=== PATIENT | female | born 1995 | race Hispanic/Latino ===

== ENCOUNTER 2017-07-04 16:43 | Emergency (ER) | payer BC, SELFPAY ==
[2017-07-04] MEDS ORDERED: MAGNESIUM HYDROXIDE 8% 30 ML ONE (19:21)
[2017-07-04] MEDS ORDERED: LIDOCAINE VISCOUS 2% SOLN 15 ML UDC ONE (19:21)
--- NOTE | 2017-07-04 19:31 | ER ---
Nurse's Notes [facility] Name: Zan Weaver Age: 22 yrs Sex: Female : 1995 Arrival Date: 07/04/2017 Time: 16:47 Bed 12 Private MD: Diagnosis: Acute tonsillitis, unspecified Presentation: 07/04 16:48 Presenting complaint: Patient states: i started having sore throat 4 days ago, and hj fever started 2 days ago; took mucinex and nyquil but not helping;. Transition of care: patient was not received from another setting of care. Onset of symptoms was July 04, 2017. Care prior to arrival: None. 16:48 Method Of Arrival: Ambulatory hj 16:48 Acuity: BRUNO 4 hj Triage Assessment: 16:49 General: Appears in no apparent distress. uncomfortable, Behavior is calm, cooperative, hj appropriate for age. Pain: Complains of pain in throat. EENT: Reports pain when swallowing. 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 - Social history:: Smoking status: unknown. Screenin:25 Abuse screen: Denies threats or abuse. Denies injuries from another. Nutritional aj1 screening: No deficits noted. Tuberculosis screening: No symptoms or risk factors identified. Fall Risk None identified. Assessment: 16:49 Respiratory: Airway is patent Respiratory effort is even, unlabored, Respiratory hj pattern is regular, symmetrical, Breath sounds are clear. EENT: Throat. 17:20 Neuro: No deficits noted. Cardiovascular: Denies chest pain, diaphoresis, fatigue, sg lightheadedness, nausea, palpitations, shortness of breath, syncope, vomiting, Chest pain is denied. Respiratory: Airway is patent Respiratory effort is even, unlabored, Respiratory pattern is regular, symmetrical. GI: No signs and/or symptoms were reported involving the gastrointestinal system. : No signs and/or symptoms were reported regarding the genitourinary system. EENT: Oral mucosa is moist. Throat is reddened has patchy exudate has enlarged tonsils bilaterally. EENT: Reports pain when swallowing right ear pain. 19:25 General: Appears in no apparent distress. uncomfortable, Behavior is calm, cooperative, aj1 appropriate for age. Pain: Complains of pain in left aspect of posterior pharynx and right aspect of posterior pharynx Pain does not radiate. Pain currently is 8 out of 10 on a pain scale. Quality of pain is described as burning, sharp. Neuro: Level of Consciousness is awake, alert, obeys commands, Oriented to person, place, time, situation, Speech is normal, Facial symmetry appears normal. Cardiovascular: Patient's skin is warm and dry. Respiratory: Airway is patent Respiratory effort is even, unlabored, Respiratory pattern is regular, symmetrical, Breath sounds are clear bilaterally. GI: No signs and/or symptoms were reported involving the gastrointestinal system. : No signs and/or symptoms were reported regarding the genitourinary system. EENT: Throat is reddened has patchy exudate has enlarged tonsils bilaterally. Derm: No signs and/or symptoms reported regarding the dermatologic system. Skin is pink, warm \T\ dry. normal. Musculoskeletal: No signs and/or symptoms reported regarding the musculoskeletal system. Circulation, motion, and sensation intact. 20:03 Reassessment: Patient appears in no apparent distress at this time. No changes from aj1 previously documented assessment. Patient and/or family updated on plan of care and expected duration. Pain level reassessed. Patient is alert, oriented x 3, equal unlabored respirations, skin warm/dry/pink. Vital Signs: 16:50 BP 112 / 60; Pulse 87; Resp 18; Temp 97.5(TE); Pulse Ox 99% on R/A; Weight 140.61 kg hj (R); Pain 10/10; 19:25 BP 136 / 92; Pulse 77; Resp 18; Pulse Ox 98% ; aj1 20:03 BP 136 / 88; Pulse 75; Resp 18; Pulse Ox 99% ; aj1 ED Course: 16:47 Patient arrived in ED. mr 16:49 Triage completed. hj 16:52 Arm band placed on left wrist. hj 17:13 Bong White PA is PHCP. cp 17:13 Bong Kelsey MD is Attending Physician. cp 17:25 Jerel Araujo, LÓPEZ is Primary Nurse. sg 19:01 Initial lab(s) drawn, by me, sent to lab. Inserted saline lock: 22 gauge in left iw antecubital area, using aseptic technique. Blood collected. 19:04 Flu and/or RSV swab sent to lab. 19:17 Sandra Parks, RN is Primary Nurse. aj1 19:17 Report received from Jerel Araujo RN. aj1 19:25 Patient has correct armband on for positive identification. Call light in reach. aj1 19:25 No provider procedures requiring assistance completed. aj1 20:04 IV discontinued, intact, bleeding controlled, No redness/swelling at site. Pressure aj1 dressing applied. Administered Medications: 19:24 Drug: GI Cocktail without - (Maalox Suspension 30 ml, Lidocaine Liquid 2 % 15 aj1 ml) Route: PO; 20:04 Follow up: Response: No adverse reaction aj1 Outcome: 19:30 Discharge ordered by . cp 20:04 Discharged to home ambulatory. aj1 20:04 Condition: good 20:04 Discharge instructions given to patient, Instructed on discharge instructions, follow up and referral plans. medication usage, Demonstrated understanding of instructions, follow-up care, medications, Prescriptions given X 2. 20:05 Patient left the ED. aj1 Signatures: Sandra Parks, RN LÓPEZ ajJerel Norman, RN LÓPEZ Antionette Miller mr Loan Calle RN RN Alli Martinez RN RN hj Page, Corey, PA PA cp Corrections: (The following items were deleted from the chart) 16:53 16:50 Pulse 87bpm; Resp 18bpm; Pulse Ox 99% RA; Temp 97.5F Temporal; 140.61 kg hj Reported; Pain 10/10; hj
--- NOTE | 2017-07-04 19:31 | EDPHYS ---
Physician Documentation [facility] Name: Zan Weaver Age: 22 yrs Sex: Female : 1995 Arrival Date: 07/04/2017 Time: 16:47 Bed 12 Private MD: ED Physician Bong Kelsey HPI: 07/04 17:45 This 22 yrs old Female presents to ER via Ambulatory with complaints of Sore cp Throat. 17:45 The patient presents with sore throat. Onset: The symptoms/episode began/occurred 4 cp day(s) ago. 17:45 Severity of symptoms: in the emergency department the symptoms are unchanged, despite cp home interventions. 17:45 Associated signs and symptoms: Pertinent positives: fever, Pertinent negatives cough, cp flu-like symptoms. 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 - Social history:: Smoking status: unknown. ROS: 17:50 Constitutional: Negative for body aches, fever, poor PO intake. cp 17:50 Eyes: Negative for injury, pain, redness, and discharge. cp 17:50 ENT: Positive for ear pain, sore throat, Negative for drainage from ear(s), difficulty swallowing, difficulty handling secretions. 17:50 Neck: Negative for pain with movement, pain at rest, stiffness. 17:50 Respiratory: Negative for cough, shortness of breath, wheezing. 17:50 Abdomen/GI: Negative for abdominal pain, vomiting, diarrhea, constipation, anorexia. 17:50 Skin: Negative for cellulitis, rash. 17:50 Neuro: Negative for altered mental status, dizziness, headache, weakness. 17:50 All other systems are negative. Exam: 17:55 Constitutional: The patient appears in no acute distress, alert, awake, non-toxic, well cp developed, well nourished, obese. 17:55 Head/Face: Normocephalic, atraumatic. cp 17:55 Eyes: Periorbital structures: appear normal, Conjunctiva: normal, no exudate, no injection, Sclera: no appreciated abnormality, Lids and lashes: appear normal, bilaterally. 17:55 ENT: External ear(s): are unremarkable, Ear canal(s): are normal, clear, TM's: bulging, is not appreciated, bilaterally, dullness, bilaterally, erythema, is not appreciated, bilaterally, Nose: is normal, Mouth: Lips: moist, Oral mucosa: moist, Posterior pharynx: Airway: no evidence of obstruction, patent, Tonsils: with erythema, with exudate, mild enlargement, Uvula: midline, swelling, is not appreciated, erythema, that is mild, Voice: is normal. 17:55 Neck: ROM/movement: is normal, is supple, no range of motions limitations, no meningismus, no nuchal rigidity. 17:55 Chest/axilla: Inspection: normal, Palpation: is normal, no crepitus, no tenderness. 17:55 Cardiovascular: Rate: normal, Rhythm: regular. 17:55 Respiratory: the patient does not display signs of respiratory distress, Respirations: normal, no use of accessory muscles, no retractions, no splinting, no tachypnea, labored breathing, is not present, Breath sounds: are clear throughout, no decreased breath sounds, no stridor, no wheezing. 17:55 Abdomen/GI: Exam negative for discomfort, distension, guarding, Inspection: obese 17:55 Skin: cellulitis, is not appreciated, no rash present. Vital Signs: 16:50 BP 112 / 60; Pulse 87; Resp 18; Temp 97.5(TE); Pulse Ox 99% on R/A; Weight 140.61 kg hj (R); Pain 10/10; 19:25 BP 136 / 92; Pulse 77; Resp 18; Pulse Ox 98% ; aj1 20:03 BP 136 / 88; Pulse 75; Resp 18; Pulse Ox 99% ; aj1 MDM: 17:13 Patient medically screened. cp 19:30 Data reviewed: vital signs, nurses notes, lab test result(s). cp 19:30 Differential diagnosis: epiglottitis, annette-smith virus, group A strep tonsillitis, cp xiao's angina, lymphoma, mononucleosis, peritonsillar abscess retropharyngeal abcess. Counseling: I had a detailed discussion with the patient and/or guardian regarding: the historical points, exam findings, and any diagnostic results supporting the discharge/admit diagnosis, lab results, to return to the emergency department if symptoms worsen or persist or if there are any questions or concerns that arise at home. Response to treatment: the patient's symptoms have mildly improved after treatment, and as a result, I will discharge patient. 07/04 16:53 Order name: Strep; Complete Time: 19:29 hj 07/04 19:29 Interpretation: Reviewed. cp 07/04 17:46 Order name: [place] Screen Profile cp 07/04 17:46 Order name: Influenza Screen (a \T\ B); Complete Time: 19:29 cp 07/04 19:29 Interpretation: Reviewed. cp 07/04 17:46 Order name: [place] Screen; Complete Time: 19:29 EDMS 07/04 19:26 Order name: Throat Culture EDMS Administered Medications: 19:24 Drug: GI Cocktail without - (Maalox Suspension 30 ml, Lidocaine Liquid 2 % 15 aj1 ml) Route: PO; 20:04 Follow up: Response: No adverse reaction aj1 Disposition: 07/05 11:39 Co-signature as Attending Physician, Bong Kelsey MD I agree with the assessment and meme plan of care. Disposition: 07/04/17 19:30 Discharged to Home. Impression: Acute tonsillitis, unspecified. - Condition is Stable. - Discharge Instructions: Tonsillitis. - Prescriptions for Augmentin 875- 125 mg Oral Tablet - take 1 tablet by ORAL route every 12 hours for 10 days; 20 tablet. Prednisone 20 mg Oral Tablet - take 3 tablet by ORAL route once daily for 5 days; 15 tablet. - Medication Reconciliation Form, Thank You Letter, Antibiotic Education, Prescription Opioid Use form. - Follow up: Private Physician; When: 1 - 2 days; Reason: Recheck today's complaints. - Problem is new. - Symptoms are unchanged. Signatures: Dispatcher [employer] EDSandra Villasenor RN RN aj1 Bong Kelsey MD MD cha Joaquin, Henry RN Bong Torres PA PA cp
[2017-07-04 20:24] VITALS: TEMP 97.5
[2017-07-04 20:26] VITALS: BP 136/88; O2SAT 99
== END 2017-07-04 20:05 | disposition home or self-care (01) ==
LOC: ER 16:43
DX: J03.90 Acute tonsillitis, unspecified (principal)
CPT/HCPCS: 36415; 86308; 87070; 87081; 87804; 99284

== ENCOUNTER 2017-09-17 23:13 | Emergency (ER) | payer SELFPAY ==
--- OUTSIDE RECORDS SUMMARY | 2017-09-17 23:15 | XMS REPORT ---
:1995 [facility] Address [address] [place] [address] [place] [id number] Care Team Providers Name Role Phone UNKNOWN, REFFERING Primary Care Provider Unavailable Problems This patient has no known problems. Allergies, Adverse Reactions, Alerts This patient has no known allergies or adverse reactions. Medications This patient has no known medications. Encounters Start End Encounter Admission Attending Care Care Encounter Date/Time Date/Time Type Type Clinicians Facility Department ID 2016-05-08 2016-05-08 Emergency E [facility] MED [id number] 22:33:00 22:33:00
[2017-09-18 00:51] LABS: Absolute Lymphocytes (CBC) 3.1 K/uL (0.7-4.9); Absolute Monocytes 0.8 K/uL (0.1-1.3); Absolute Neutrophil 5.4 K/uL (1.8-8.0); Basophils % 0.7 % (0-1.3); Eosinophils % 2.9 % (0-4.4); Hematocrit 37.3 % (36.0-45.0); Lymphocytes % 32.4 % (15.3-44.8); MCH 27.4 pg (27.0-35.0); MCV 83.5 fL (80-100); MPV 8.4 fL (7.6-11.3); Monocytes % 8.1 % (3.3-12.3); Protime INR 1.18; RBC Red Blood Cell Count 4.46 M/uL (3.86-4.86)
[2017-09-18 01:17] LABS: Urine Blood 3+ (NEG); Urine Glucose NEGATIVE (NEG); Urine Protein 2+ (NEG); Urine Specific Gravity 1.025 (1.005-1.030)
[2017-09-18 01:40] LABS: BUN Blood Urea Nitrogen 18 mg/dL (7-18); Bicarbonate 29 mmol/L (21-32); Glucose Level 92 mg/dL (74-106); HCG, Quantitative < 1 mIU/mL (1-3); Potassium 3.7 mmol/L (3.5-5.1); Sodium Level 141 mmol/L (136-145)
--- NOTE | 2017-09-18 02:17 | ER ---
Nurse's Notes [facility] Name: Zan Weaver Age: 22 yrs Sex: Female : 1995 Arrival Date: 09/17/2017 Time: 23:13 Bed 18 Private MD: Diagnosis: Abnormal uterine and vaginal bleeding, unspecified Presentation: 09/17 23:21 Presenting complaint: Patient states: that she has been on her period on and off x 3 fc months. Worse the past 2 weeks. The last 2 days the clots have been getting larger and she has been having to pull them out herself. Now has a foul odor. Has not seen a senior solutions consultant for this problem. Transition of care: patient was not received from another setting of care. Onset of symptoms was May 2017. Risk Assessment: Do you want to hurt yourself or someone else? Patient reports no desire to harm self or others. Initial Sepsis Screen: Does the patient meet any 2 criteria? No. Patient's initial sepsis screen is negative. Does the patient have a suspected source of infection? No. Patient's initial sepsis screen is negative. Care prior to arrival: None. 23:21 Method Of Arrival: Ambulatory 23:21 Acuity: BRUNO 3 fc Triage Assessment: 23:24 General: Appears comfortable, obese, well groomed, Behavior is calm, cooperative, fc appropriate for age. Pain: Denies pain. EENT: No deficits noted. Neuro: Level of Consciousness is awake, alert, obeys commands, Oriented to person, place, time, situation. Cardiovascular: No deficits noted. Respiratory: No deficits noted. GI: No deficits noted. : Reports vaginal bleeding that is with clots, heavy flow dark red blood with foul odor. Derm: Skin is pink, warm \T\ dry. Musculoskeletal: Circulation, motion, and sensation intact. Capillary refill < 3 seconds, Range of motion: intact in all extremities. 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 - Social history:: Smoking status: Patient/guardian denies using tobacco. - Ebola Screening: : Patient negative for fever greater than or equal to 101.5 degrees Fahrenheit, and additional compatible Ebola Virus Disease symptoms Patient denies exposure to infectious person Patient denies travel to an Ebola-affected area in the 21 days before illness onset. Screenin:49 Abuse screen: Denies threats or abuse. Nutritional screening: No deficits noted. jd3 Tuberculosis screening: No symptoms or risk factors identified. Fall Risk Ambulatory Aid- None/Bed Rest/Nurse Assist (0 pts). Gait- Normal/Bed Rest/Wheelchair (0 pts) Mental Status- Oriented to own ability (0 pts). Total Burden Fall Scale indicates No Risk (0-24 pts). Assessment: 23:46 General: Appears uncomfortable, Behavior is calm, cooperative, appropriate for age. jd3 Pain: Denies pain. Neuro: Level of Consciousness is awake, alert, obeys commands, Oriented to person, place, time, situation, Appropriate for age. Cardiovascular: Heart tones S1 S2 present Capillary refill < 3 seconds Patient's skin is warm and dry. Respiratory: Airway is patent Respiratory effort is even, unlabored, Respiratory pattern is regular, symmetrical, Breath sounds are clear bilaterally. GI: Abdomen is round Bowel sounds present X 4 quads. Abd is soft and non tender X 4 quads. Patient currently denies diarrhea, nausea, vomiting. : Reports vaginal bleeding that is with clots, heavy flow. EENT: No signs and/or symptoms were reported regarding the EENT system. Derm: Skin is intact, Skin is dry, Skin is normal, Skin temperature is warm. Musculoskeletal: Circulation, motion, and sensation intact. Range of motion: intact in all extremities. 09/18 00:49 Reassessment: Patient appears in no apparent distress at this time. Patient and/or jd3 family updated on plan of care and expected duration. Pain level reassessed. Patient is alert, oriented x 3, equal unlabored respirations, skin warm/dry/pink. 01:56 Reassessment: Patient appears in no apparent distress at this time. Patient and/or jd3 family updated on plan of care and expected duration. Pain level reassessed. Patient is alert, oriented x 3, equal unlabored respirations, skin warm/dry/pink. 02:32 Reassessment: Patient appears in no apparent distress at this time. Patient and/or jd3 family updated on plan of care and expected duration. Pain level reassessed. Patient is alert, oriented x 3, equal unlabored respirations, skin warm/dry/pink. pt reported understanding of discharge instructions, even and steady gait upon discharge. Vital Signs: 09/17 23:24 BP 133 / 81; Pulse 64; Resp 20; Temp 97.6(TE); Pulse Ox 99% on R/A; Weight 137.44 kg fc (R); Height 5 ft. 1 in. (154.94 cm) (R); Pain 0/10; 09/18 00:48 BP 136 / 79; Pulse 65; Resp 17 S; Pulse Ox 99% on R/A; Pain 0/10; jd3 01:56 BP 142 / 80; Pulse 66; Resp 17 S; Pulse Ox 99% on R/A; Pain 0/10; jd3 09/17 23:24 Body Mass Index 57.25 (137.44 kg, 154.94 cm) ED Course: 09/17 23:13 Patient arrived in ED. ds1 23:23 Triage completed. fc 23:37 Ruddy Norris, LÓPEZ is Primary Nurse. jd3 23:38 Arm band placed on. jd3 23:49 Patient has correct armband on for positive identification. Bed in low position. Call jd3 light in reach. Side rails up X 1. Adult w/ patient. 23:52 Bong White PA is PHCP. cp 23:52 Tj Schmidt MD is Attending Physician. cp 09/18 00:30 Inserted saline lock: 20 gauge in right antecubital area, using aseptic technique. jd3 Blood collected. 02:15 Erendira Cho MD is Referral Physician. cp 02:31 No provider procedures requiring assistance completed. IV discontinued, intact, jd3 bleeding controlled, No redness/swelling at site. Pressure dressing applied. Administered Medications: No medications were administered Outcome: 02:16 Discharge ordered by . cp 02:31 Discharged to home ambulatory, with family. jd3 02:31 Condition: stable 02:31 Discharge instructions given to patient, family, Instructed on discharge instructions, follow up and referral plans. Demonstrated understanding of instructions, follow-up care. 02:33 Patient left the ED. jd3 Signatures: Nany Anthony RN RN Peri Bolanos ds1 Bong White PA PA cp Davies, Jonathon, RN RN jd3
--- NOTE | 2017-09-18 02:17 | EDPHYS ---
Physician Documentation [facility] Name: Zan Weaver Age: 22 yrs Sex: Female : 1995 Arrival Date: 09/17/2017 Time: 23:13 Bed 18 Private MD: ED Physician Tj Schmidt HPI: 09/18 00:00 This 22 yrs old Female presents to ER via Ambulatory with complaints of cp Vaginal Bleeding. 00:00 The patient presents with vaginal bleeding that is with clots. Onset: The cp symptoms/episode began/occurred 3 month(s) ago, and became worse 2 week(s) ago. Associated signs and symptoms: Pertinent positives: vaginal odor, Pertinent negatives: constipation, diarrhea, dysuria, fever. Severity of symptoms: in the emergency department the symptoms are unchanged, despite home interventions. The patient's method of control includes nothing. 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 - Social history:: Smoking status: Patient/guardian denies using tobacco. - Ebola Screening: : Patient negative for fever greater than or equal to 101.5 degrees Fahrenheit, and additional compatible Ebola Virus Disease symptoms Patient denies exposure to infectious person Patient denies travel to an Ebola-affected area in the 21 days before illness onset. ROS: 09/18 00:05 Constitutional: Negative for chills, fever, poor PO intake. cp 00:05 Eyes: Negative for injury, pain, redness, and discharge. cp 00:05 ENT: Negative for drainage from ear(s), ear pain, sore throat, difficulty swallowing, difficulty handling secretions. 00:05 Cardiovascular: Negative for chest pain, edema, palpitations. 00:05 Respiratory: Negative for cough, shortness of breath, wheezing. 00:05 Abdomen/GI: Negative for abdominal pain, nausea, vomiting, and diarrhea. 00:05 : Positive for vaginal bleeding, Negative for urinary symptoms. 00:05 Neuro: Negative for altered mental status, dizziness, headache, syncope, near syncope, weakness. 00:05 All other systems are negative. Exam: 00:10 Constitutional: The patient appears in no acute distress, alert, awake, non-toxic, well cp developed, well nourished, obese. 00:10 Head/Face: Normocephalic, atraumatic. Eyes: Pupils equal round and reactive to light, cp extra-ocular motions intact. Lids and lashes normal. Conjunctiva and sclera are non-icteric and not injected. Cornea within normal limits. Periorbital areas with no swelling, redness, or edema. ENT: Nares patent. No nasal discharge, no septal abnormalities noted. Tympanic membranes are normal and external auditory canals are clear. Oropharynx with no redness, swelling, or masses, exudates, or evidence of obstruction, uvula midline. Mucous membranes moist. Chest/axilla: Normal chest wall appearance and motion. Nontender with no deformity. No lesions are appreciated. 00:10 Cardiovascular: Rate: normal, Rhythm: regular, Edema: is not appreciated, JVD: is not appreciated. 00:10 Respiratory: the patient does not display signs of respiratory distress, Respirations: normal, no use of accessory muscles, no retractions, no splinting, no tachypnea, labored breathing, is not present, Breath sounds: are clear throughout, no decreased breath sounds, no stridor, no wheezing. 00:10 Abdomen/GI: Inspection: obese Bowel sounds: active, all quadrants, Palpation: abdomen is soft and non-tender, in all quadrants, rebound tenderness, is not appreciated, voluntary guarding, is not appreciated, involuntary guarding, is not appreciated. 00:10 Back: pain, is absent, ROM is normal. 00:10 Skin: cellulitis, is not appreciated, no rash present. 00:10 Neuro: Orientation: to person, place \T\ time. Mentation: lucid, able to follow commands, Cerebellar function: is grossly normal, Motor: moves all fours, strength is normal, Sensation: no obvious gross deficits. 02:00 : Pelvic Exam: The exam is refused by the patient/guardian. The risks and cp consequences are understood by the patient. Vital Signs: 09/17 23:24 BP 133 / 81; Pulse 64; Resp 20; Temp 97.6(TE); Pulse Ox 99% on R/A; Weight 137.44 kg fc (R); Height 5 ft. 1 in. (154.94 cm) (R); Pain 0/10; 09/18 00:48 BP 136 / 79; Pulse 65; Resp 17 S; Pulse Ox 99% on R/A; Pain 0/10; jd3 01:56 BP 142 / 80; Pulse 66; Resp 17 S; Pulse Ox 99% on R/A; Pain 0/10; jd3 09/17 23:24 Body Mass Index 57.25 (137.44 kg, 154.94 cm) fc MDM: 09/17 23:52 Patient medically screened. 09/18 00:00 Differential diagnosis: dysmenorrhea, ectopic , endometriosis, menorrhea, cp molar preganancy, pelvic inflammatory disease, uterine fibroids, urinary tract infection, vaginosis. 02:14 Data reviewed: vital signs, nurses notes, lab test result(s), and as a result, I will cp discharge patient. 02:14 Counseling: I had a detailed discussion with the patient and/or guardian regarding: the cp historical points, exam findings, and any diagnostic results supporting the discharge/admit diagnosis, lab results, the need for outpatient follow up, an OB/Gyne specialist, to return to the emergency department if symptoms worsen or persist or if there are any questions or concerns that arise at home. 02:14 Refusal of service: The patient/guardian displays adequate decision making capability and despite a detailed discussion of alternatives, benefits, risks, and consequences refuses: pelvic exam. 09/18 00:14 Order name: Quantitative Hcg; Complete Time: 02:00 cp 09/18 02:00 Interpretation: HCGQ < 1; Reviewed. 09/18 00:14 Order name: Basic Metabolic Panel; Complete Time: 02:00 cp 09/18 00:14 Order name: CBC with Diff; Complete Time: 01:06 cp 09/18 00:14 Order name: PT-INR; Complete Time: 01:06 cp 09/18 00:14 Order name: Pth,Intact cp 09/18 00:14 Order name: Urine Test (obtain specimen); Complete Time: 00:42 cp 09/18 00:14 Order name: IV Saline Lock; Complete Time: 00:33 cp 09/18 00:14 Order name: Labs collected and sent; Complete Time: 00:33 cp 09/18 00:14 Order name: NPO; Complete Time: 00:15 cp 09/18 00:14 Order name: Urine Dipstick-Ancillary (obtain specimen); Complete Time: 00:43 cp 09/18 00:14 Order name: Type And Screen; Complete Time: 02:00 cp 09/18 00:44 Order name: Urine Dipstick--Ancillary (enter results); Complete Time: 02:00 2 09/18 02:01 Interpretation: Normal except: UBLD 3+; UPROT 2+. cp 09/18 00:44 Order name: Urine --Ancillary (enter results); Complete Time: 02:00 rg2 09/18 00:14 Order name: Pelvic Exam Setup; Complete Time: 00:48 cp Administered Medications: No medications were administered Disposition: 09/18/17 02:16 Discharged to Home. Impression: Abnormal uterine and vaginal bleeding, unspecified. - Condition is Stable. - Discharge Instructions: Abnormal Uterine Bleeding, Uterine Bleeding, Dysfunctional. - Medication Reconciliation Form, Thank You Letter, Antibiotic Education, Prescription Opioid Use form. - Follow up: Erendira Cho MD; When: 1 - 2 days; Reason: irregular vaginal bleeding. - Problem is new. - Symptoms are unchanged. Addendum: 09/19/2017 13:18 Co-signature as Attending Physician, Tj Schmidt MD Available for consultation at p s1 all times. . Signatures: Dispatcher [employer] [facility] Nany Anthony RN RN Bong Rowe PA PA cp Davies, Jonathon, RN RN jd3 Singer, Phillip, MD MD ps1 Corrections: (The following items were deleted from the chart) 09/18 00:44 00:15 ABO/RH TYPING+BB.LAB.BRZ ordered. [facility] 02:33 02:16 09/18/2017 02:16 Discharged to Home. Impression: Abnormal uterine and vaginal jd3 bleeding, unspecified. Condition is Stable. Forms are Medication Reconciliation Form, Thank You Letter, Antibiotic Education, Prescription Opioid Use. Follow up: Erendira Cho; When: 1 - 2 days; Reason: irregular vaginal bleeding. Problem is new. Symptoms are unchanged. cp
[2017-09-18 05:40] VITALS: TEMP 97.6; O2SAT 99
[2017-09-18 05:42] VITALS: BP 142/80
== END 2017-09-18 02:33 | disposition home or self-care (01) ==
LOC: ER 23:13
DX: N93.9 Abnormal uterine and vaginal bleeding, unspecified (principal)
CPT/HCPCS: 36415; 80048; 81003; 81025; 83970; 84702; 85025; 85610; 86850; 86900; 86901; 99283

== ENCOUNTER 2018-10-08 12:04 | Emergency (ER) | payer SELFPAY ==
--- OUTSIDE RECORDS SUMMARY | 2018-10-08 12:06 | XMS REPORT ---
:1995 [facility] Address [address] [place] [address] [place] [id number] Care Team Providers Name Role Phone UNKNOWN, REFFERING Primary Care Provider Unavailable Problems This patient has no known problems. Allergies, Adverse Reactions, Alerts This patient has no known allergies or adverse reactions. Medications This patient has no known medications. Encounters Start End Encounter Admission Attending Care Care Encounter Date/Time Date/Time Type Type Clinicians Facility Department ID 2016-05-08 2016-05-08 Emergency E [facility] MED [id number] 22:33:00 22:33:00
[2018-10-08 12:50] LABS: Absolute Lymphocytes (CBC) 2.1 K/uL (0.7-4.9); Basophils % 0.8 % (0-1.3); Eosinophils % 2.5 % (0-4.4); Hematocrit 40.9 % (36.0-45.0); Lymphocytes % 27.4 % (15.3-44.8); MPV 8.8 fL (7.6-11.3); RBC Red Blood Cell Count 4.67 M/uL (3.86-4.86)
[2018-10-08 13:09] LABS: Urine Blood 3+ (NEG); Urine Glucose NEGATIVE (NEG); Urine Protein NEGATIVE (NEG); Urine Specific Gravity 1.025 (1.005-1.030)
--- NOTE | 2018-10-08 14:16 | RAD REPORT ---
EXAM DESCRIPTION: US - Transvaginal OB - 10/08/2018 2:00 pm CLINICAL HISTORY: with abdominal pain and vaginal bleeding COMPARISON: None. FINDINGS: The uterus 10 x 4 x 5 centimeters. The endometrial stripe measures 26 millimeters. A gest ational sac is not seen. Ovaries are normal in size and echotexture.. An adnexal mass is not noted. Small amount of fluid IMPRESSION: Nonvisualization of a gestational sac within the endometrium with a small amount of free fluid. These findings could represent an early intrauterine in which the gestational sac is not se en. and even an ectopic can also result in this appearance. This all should be cor related clinically and with serial beta HCG levels. Followup endovaginal sonogram in 1 week recommend ed
[2018-10-08 14:24] LABS: BUN Blood Urea Nitrogen 18 mg/dL (7-18); Bicarbonate 25 mmol/L (21-32); Glucose Level 84 mg/dL (74-106); HCG, Quantitative 111 mIU/mL (1-3); Potassium 3.9 mmol/L (3.5-5.1); Sodium Level 140 mmol/L (136-145)
--- NOTE | 2018-10-08 14:30 | EDPHYS ---
Physician Documentation [facility] Name: Zan Weaver Age: 23 yrs Sex: Female : 1995 Arrival Date: 10/08/2018 Time: 12:06 Bed 17 Private MD: ED Physician Rustam Barajas HPI: 10/08 12:19 This 23 yrs old Female presents to ER via Ambulatory with complaints of snw Vaginal Bleeding - unk wks preg. 12:19 The patient presents with vaginal bleeding that is spotting, with no clots. Onset: The snw symptoms/episode began/occurred suddenly, last night. Modifying factors: The symptoms are alleviated by nothing, the symptoms are aggravated by sexual intercourse. Associated signs and symptoms: The patient has no apparent associated signs or symptoms. Severity of symptoms: At their worst the symptoms were very mild. The patient is sexually active, reportedly has a single partner. The patient has not experienced similar symptoms in the past. The patient has not recently seen a physician, appt on Tuesday. 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 - Social history:: Smoking status: Patient/guardian denies using tobacco, Patient uses street drugs, marijuana. - Ebola Screening: : Patient denies exposure to infectious person Patient denies travel to an Ebola-affected area in the 21 days before illness onset. ROS: 12:19 Constitutional: Negative for fever, chills, and weight loss, Eyes: Negative for injury, snw pain, redness, and discharge, ENT: Negative for injury, pain, and discharge, Neck: Negative for injury, pain, and swelling, Cardiovascular: Negative for chest pain, palpitations, and edema, Respiratory: Negative for shortness of breath, cough, wheezing, and pleuritic chest pain, Back: Negative for injury and pain, MS/Extremity: Negative for injury and deformity, Skin: Negative for injury, rash, and discoloration, Neuro: Negative for headache, weakness, numbness, tingling, and seizure. 12:19 Abdomen/GI: Positive for abdominal cramps. 12:19 : Positive for vaginal bleeding, spotting. Exam: 12:19 Constitutional: This is a well developed, well nourished patient who is awake, alert, snw and in no acute distress. Head/Face: Normocephalic, atraumatic. Eyes: Pupils equal round and reactive to light, extra-ocular motions intact. Lids and lashes normal. Conjunctiva and sclera are non-icteric and not injected. Cornea within normal limits. Periorbital areas with no swelling, redness, or edema. ENT: Nares patent. No nasal discharge, no septal abnormalities noted. Tympanic membranes are normal and external auditory canals are clear. Oropharynx with no redness, swelling, or masses, exudates, or evidence of obstruction, uvula midline. Mucous membranes moist. Neck: Trachea midline, no thyromegaly or masses palpated, and no cervical lymphadenopathy. Supple, full range of motion without nuchal rigidity, or vertebral point tenderness. No Meningismus. Chest/axilla: Normal chest wall appearance and motion. Nontender with no deformity. No lesions are appreciated. Cardiovascular: Regular rate and rhythm with a normal S1 and S2. No gallops, murmurs, or rubs. Normal PMI, no JVD. No pulse deficits. Respiratory: Lungs have equal breath sounds bilaterally, clear to auscultation and percussion. No rales, rhonchi or wheezes noted. No increased work of breathing, no retractions or nasal flaring. Abdomen/GI: Soft, non-tender, with normal bowel sounds. No distension or tympany. No guarding or rebound. No evidence of tenderness throughout. Back: No spinal tenderness. No costovertebral tenderness. Full range of motion. Skin: Warm, dry with normal turgor. Normal color with no rashes, no lesions, and no evidence of cellulitis. MS/ Extremity: Pulses equal, no cyanosis. Neurovascular intact. Full, normal range of motion. Neuro: Awake and alert, GCS 15, oriented to person, place, time, and situation. Cranial nerves II-XII grossly intact. Motor strength 5/5 in all extremities. Sensory grossly intact. Cerebellar exam normal. Normal gait. Psych: Awake, alert, with orientation to person, place and time. Behavior, mood, and affect are within normal limits. Vital Signs: 12:14 Resp 16; Weight 127.01 kg; Height 5 ft. 1 in. (154.94 cm); Pain 2/10; ss 13:17 BP 119 / 83; Pulse 84; Resp 16; Temp 98.6; Pulse Ox 99% on R/A; aj 14:12 BP 114 / 56; Pulse 70; Resp 15; Temp 97.8(O); Pulse Ox 100% ; mh5 12:14 Body Mass Index 52.90 (127.01 kg, 154.94 cm) ss MDM: 12:11 Patient medically screened. snw 14:30 Data reviewed: vital signs, nurses notes. Data interpreted: Pulse oximetry: on room air snw is 100 %. Interpretation: normal. Counseling: I had a detailed discussion with the patient and/or guardian regarding: the historical points, exam findings, and any diagnostic results supporting the discharge/admit diagnosis, lab results, radiology results, the need for outpatient follow up, to return to the emergency department if symptoms worsen or persist or if there are any questions or concerns that arise at home. Special discussion: Based on the history and exam findings, there is no indication for further emergent testing or inpatient evaluation. I discussed with the patient/guardian the need to see the OB Gyne specialist for further evaluation of the symptoms. 10/08 12:11 Order name: Quantitative Hcg snw 10/08 12:11 Order name: Abo/rh Typing snw 10/08 12:11 Order name: Basic Metabolic Panel; Complete Time: 14:25 snw 10/08 12:11 Order name: CBC with Diff; Complete Time: 13:00 snw 10/08 12:12 Order name: HCG, Quantitative; Complete Time: 14:25 EDMS 10/08 12:12 Order name: ABO/RH typing; Complete Time: 13:00 EDMS 10/08 12:11 Order name: Urine Test (obtain specimen); Complete Time: 12:32 snw 10/08 12:11 Order name: IV Saline Lock; Complete Time: 12:32 snw 10/08 12:11 Order name: Labs collected and sent; Complete Time: 12:32 snw 10/08 12:11 Order name: NPO; Complete Time: 12:39 snw 10/08 12:11 Order name: Urine Dipstick-Ancillary (obtain specimen); Complete Time: 12:32 snw 10/08 12:30 Order name: US Transvaginal Ob; Complete Time: 14:16 snw 10/08 12:34 Order name: Urine Dipstick--Ancillary (enter results); Complete Time: 13:13 eb 10/08 12:34 Order name: Urine --Ancillary (enter results); Complete Time: 13:13 eb Administered Medications: No medications were administered Disposition: 14:44 Co-signature as Attending Physician, Rustam Barajas MD. rn Disposition: 10/08/18 14:29 Discharged to Home. Impression: related conditions, unspecified, first trimester. - Condition is Stable. - Discharge Instructions: Vaginal Bleeding During , First Trimester. - Prescriptions for Vitamin 27- 0.8 mg Oral Tablet - take 1 tablet by ORAL route once daily; 60 tablet. - Medication Reconciliation Form, Thank You Letter, Antibiotic Education, Prescription Opioid Use form. - Follow up: Private Physician; When: 2 - 3 days; Reason: Recheck today's complaints, Continuance of care, Re-evaluation by your physician. Follow up: Emergency Department; When: As needed; Reason: Worsening of condition. Signatures: Dispatcher [employer] Consuelo Van RN RN aj Therrien, Shelly, MACHINE RIVETER-C MACHINE RIVETER-Csnw Rustam Barajas MD MD rn Smirch, Shelby, RN RN ss Corrections: (The following items were deleted from the chart) 14:42 14:29 10/08/2018 14:29 Discharged to Home. Impression: related conditions, aj unspecified, first trimester. Condition is Stable. Forms are Medication Reconciliation Form, Thank You Letter, Antibiotic Education, Prescription Opioid Use. Follow up: Private Physician; When: 2 - 3 days; Reason: Recheck today's complaints, Continuance of care, Re-evaluation by your physician. Follow up: Emergency Department; When: As needed; Reason: Worsening of condition. snw
--- NOTE | 2018-10-08 14:30 | ER ---
Nurse's Notes [facility] Name: Zan Weaver Age: 23 yrs Sex: Female : 1995 Arrival Date: 10/08/2018 Time: 12:06 Bed 17 Private MD: Diagnosis: related conditions, unspecified, first trimester Presentation: 10/08 12:12 Presenting complaint: Patient states: vaginal spotting since yesterday morning. Pt ss reports she is expecting, but is unsure how far along she is. Transition of care: patient was not received from another setting of care. Onset of symptoms was October 07, 2018. Risk Assessment: Do you want to hurt yourself or someone else? Patient reports no desire to harm self or others. Initial Sepsis Screen: Does the patient have a suspected source of infection? No. Patient's initial sepsis screen is negative. Care prior to arrival: None. 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 - Social history:: Smoking status: Patient/guardian denies using tobacco, Patient uses street drugs, marijuana. - Ebola Screening: : Patient denies exposure to infectious person Patient denies travel to an Ebola-affected area in the 21 days before illness onset. Screenin:31 Abuse screen: Denies threats or abuse. Denies injuries from another. Nutritional aj screening: No deficits noted. Tuberculosis screening: No symptoms or risk factors identified. Fall Risk None identified. Assessment: 12:31 General: Appears in no apparent distress. comfortable, Behavior is calm, cooperative, aj appropriate for age. Pain: Denies pain. Neuro: Level of Consciousness is awake, alert, obeys commands, Oriented to person, place, time, situation, Appropriate for age. Respiratory: Airway is patent Respiratory effort is even, unlabored, Respiratory pattern is regular, symmetrical. : Reports vaginal bleeding that is spotty. Derm: Skin is intact, is healthy with good turgor, Skin is pink, warm \T\ dry. normal. Vital Signs: 12:14 Resp 16; Weight 127.01 kg; Height 5 ft. 1 in. (154.94 cm); Pain 2/10; ss 13:17 BP 119 / 83; Pulse 84; Resp 16; Temp 98.6; Pulse Ox 99% on R/A; aj 14:12 BP 114 / 56; Pulse 70; Resp 15; Temp 97.8(O); Pulse Ox 100% ; mh5 12:14 Body Mass Index 52.90 (127.01 kg, 154.94 cm) ED Course: 12:06 Patient arrived in ED. as 12:10 Tricia Yee FNP-C is [facility]. snw 12:10 Rustam Barajas MD is Attending Physician. snw 12:13 Triage completed. ss 12:14 Arm band placed on right wrist. ss 12:30 Consuelo Ram, RN is Primary Nurse. aj 12:31 Patient has correct armband on for positive identification. Bed in low position. Call aj light in reach. Adult w/ patient. Pulse ox on. NIBP on. 12:31 Inserted saline lock: 20 gauge in right antecubital area, using aseptic technique. aj Blood collected. 12:32 Quantitative Hcg Sent. aj 12:33 Abo/rh Typing Sent. aj 12:33 Basic Metabolic Panel Sent. aj 12:33 CBC with Diff Sent. aj 12:33 ABO/RH typing Sent. aj 12:33 HCG, Quantitative Sent. aj 13:20 Ultrasound completed. Patient tolerated well. Notified COMMUNITY ENGAGEMENT MANAGER/MARTIN alonso. sg3 14:01 US Transvaginal Ob In Process Unspecified. EDMS 14:41 No provider procedures requiring assistance completed. IV discontinued, intact, aj bleeding controlled, No redness/swelling at site. Pressure dressing applied. Administered Medications: No medications were administered Outcome: 14:29 Discharge ordered by . snw 14:41 Discharged to home ambulatory, with friend. aj 14:41 Condition: good 14:41 Discharge instructions given to patient, Instructed on discharge instructions, follow up and referral plans. medication usage, Demonstrated understanding of instructions, follow-up care, medications, Prescriptions given X 1. 14:42 Patient left the ED. aj Signatures: Dispatcher [employer] EDMS Consuelo Ram, RN RN Tricia Wong, MARINE FIRE FIGHTER-C MARINE FIRE FIGHTER-Csnw Aminah Villa Shelby, Antionette Mills RN [facility] China Hutson 3 Corrections: (The following items were deleted from the chart) 14:26 14:12 Pulse 70bpm; Resp 15bpm; Pulse Ox 100%; Temp 97.8F Oral; 5 [facility]
[2018-10-08 15:11] VITALS: BP 114/56; TEMP 97.8; O2SAT 100
== END 2018-10-08 14:42 | disposition home or self-care (01) ==
LOC: ER 12:04
DX: O26.91 Pregnancy related conditions, unspecified, first trimester (principal)
CPT/HCPCS: 36415; 76817; 80048; 81003; 81025; 84702; 85025; 86900; 86901; 99284

== ENCOUNTER 2018-10-18 06:52 | Emergency (ER) | payer SELFPAY ==
--- OUTSIDE RECORDS SUMMARY | 2018-10-18 06:55 | XMS REPORT ---
:1995 [facility] Address [address] [place] [address] [place] [id number] Care Team Providers Name Role Phone UNKNOWN, REFFERING Primary Care Provider Unavailable Problems This patient has no known problems. Allergies, Adverse Reactions, Alerts This patient has no known allergies or adverse reactions. Medications This patient has no known medications. Encounters Start End Encounter Admission Attending Care Care Encounter Date/Time Date/Time Type Type Clinicians Facility Department ID 2016-05-08 2016-05-08 Emergency E [facility] MED [id number] 22:33:00 22:33:00
--- NOTE | 2018-10-18 08:19 | EDPHYS ---
Physician Documentation [facility] Name: Zan Weaver Age: 23 yrs Sex: Female : 1995 Arrival Date: 10/18/2018 Time: 06:55 Bed 20 Private MD: ED Physician Rustam Barajas HPI: 10/18 07:08 This 23 yrs old Female presents to ER via Ambulatory with complaints of kb Vaginal Bleeding, + Preg <12wks. 07:08 The patient presents to the emergency department with vaginal bleeding, that is kb moderate, with clots. The estimated gestational age is 7 weeks. course: care: at a clinic, Leakage of Fluid: none appreciated, Ultrasound: the patient had an ultrasound, Risk/complications: no obvious risks or complications are appreciated. Previous pregnancies: the patient has never been . 07:09 Associated signs and symptoms: Pertinent positives: vaginal bleeding, Pertinent kb negatives: abdominal pain, chest pain, diarrhea, dysuria, fever, frequency, nausea, ruptured membranes, seizure, shortness of breath, vaginal discharge, vomiting. The patient has not experienced similar symptoms in the past. The patient has been recently seen by a physician: The patient has been recently seen at the [facility] Emergency Department. Pt reports she had some spotting last week and had just found out she was . Came here and followed up with OB clinic and was told it was normal from both places, but she needed to be seen again it she has heavy bleeding or is "passing tissues through." States she woke up this morning with bleeding and is passing tissue (clots). . SOUND EFFECTS PERSON: 07:09 1, 0, Living 0, LMP 08/12/2018 kb 07:16 LMP 08/25/2018 tw2 Historical: - Allergies: 07:04 No Known Allergies; tw2 - Home Meds: 07:04 None [Active]; tw2 - PMHx: 07:04 vaginal bleeding; Seizures; tw2 - PSHx: 07:04 None; tw2 - Immunization history:: Adult Immunizations. - Social history:: Smoking status: . - Ebola Screening: : Patient denies travel to an Ebola-affected area in the 21 days before illness onset. ROS: 07:11 Constitutional: Negative for fever, chills, and weight loss, Cardiovascular: Negative kb for chest pain, palpitations, and edema, Respiratory: Negative for shortness of breath, cough, wheezing, and pleuritic chest pain, Abdomen/GI: Negative for abdominal pain, nausea, vomiting, diarrhea, and constipation, MS/Extremity: Negative for injury and deformity, Skin: Negative for injury, rash, and discoloration, Neuro: Negative for headache, weakness, numbness, tingling, and seizure. 07:11 : Positive for vaginal bleeding. Exam: 07:11 Constitutional: This is a well developed, well nourished patient who is awake, alert, kb and in no acute distress. Head/Face: Normocephalic, atraumatic. Chest/axilla: Normal chest wall appearance and motion. Nontender with no deformity. No lesions are appreciated. Cardiovascular: Regular rate and rhythm with a normal S1 and S2. No gallops, murmurs, or rubs. Normal PMI, no JVD. No pulse deficits. Respiratory: Lungs have equal breath sounds bilaterally, clear to auscultation and percussion. No rales, rhonchi or wheezes noted. No increased work of breathing, no retractions or nasal flaring. Abdomen/GI: Soft, non-tender, with normal bowel sounds. No distension or tympany. No guarding or rebound. No evidence of tenderness throughout. Back: No spinal tenderness. No costovertebral tenderness. Full range of motion. Skin: Warm, dry with normal turgor. Normal color with no rashes, no lesions, and no evidence of cellulitis. MS/ Extremity: Pulses equal, no cyanosis. Neurovascular intact. Full, normal range of motion. Neuro: Awake and alert, GCS 15, oriented to person, place, time, and situation. Cranial nerves II-XII grossly intact. Motor strength 5/5 in all extremities. Sensory grossly intact. Cerebellar exam normal. Normal gait. Vital Signs: 07:16 BP 149 / 70; Pulse 88; Resp 18; Temp 97.9(TE); Pulse Ox 99% on R/A; Weight 127.01 kg tw2 (R); Height 5 ft. 1 in. (154.94 cm) (R); Pain 2/10; 08:23 BP 145 / 77; Pulse 65; Resp 17; Temp 97.8(TE); Pulse Ox 100% on R/A; tw2 07:16 Body Mass Index 52.90 (127.01 kg, 154.94 cm) tw2 MDM: 06:59 Patient medically screened. kb 07:11 Data reviewed: vital signs, nurses notes. Data interpreted: Pulse oximetry: on room air kb is 100 %. Interpretation: normal. 08:16 Counseling: I had a detailed discussion with the patient and/or guardian regarding: the kb historical points, exam findings, and any diagnostic results supporting the discharge/admit diagnosis, lab results, radiology results, the need for outpatient follow up, an OB/Gyne specialist, to return to the emergency department if symptoms worsen or persist or if there are any questions or concerns that arise at home. 10/18 07:03 Order name: HCG-Quantitative; Complete Time: 08:03 kb 10/18 07:03 Order name: US Transvaginal Ob kb 10/18 07:03 Order name: Urine Dipstick-Ancillary (obtain specimen); Complete Time: 07:15 kb Administered Medications: No medications were administered Disposition: 08:32 Co-signature as Attending Physician, Rustam Barajas MD. rn Disposition: 10/18/18 08:17 Discharged to Home. Impression: Threatened . - Condition is Stable. - Discharge Instructions: Threatened Miscarriage, [id number], Pelvic Rest. - Medication Reconciliation Form, Thank You Letter, Antibiotic Education, Prescription Opioid Use form. - Follow up: Emergency Department; When: As needed; Reason: Worsening of condition. Follow up: Private Physician; When: 2 - 3 days; Reason: Recheck today's complaints, Continuance of care, Re-evaluation by your physician. Signatures: Dispatcher [employer] Amber Claros, HAND PICKER-C HAND PICKER-Ckb Rustam Barajas MD MD rn Wise, Tara, RN RN tw2 Corrections: (The following items were deleted from the chart) 07:11 07:09 Pt reports she had some spotting last week and had just found out she was kb . Came here and followed up with OB clinic and was told it was normal from both places, but she needed to be seen again it she has heavy bleeding or is "passing tissues through." States she woke up this morning with bleeding and is passing tissue. . kb 08:24 08:17 10/18/2018 08:17 Discharged to Home. Impression: Threatened . Condition tw2 is Stable. Forms are Medication Reconciliation Form, Thank You Letter, Antibiotic Education, Prescription Opioid Use. Follow up: Emergency Department; When: As needed; Reason: Worsening of condition. Follow up: Private Physician; When: 2 - 3 days; Reason: Recheck today's complaints, Continuance of care, Re-evaluation by your physician. kb
--- NOTE | 2018-10-18 08:19 | ER ---
Nurse's Notes [facility] Name: Zan Weaver Age: 23 yrs Sex: Female : 1995 Arrival Date: 10/18/2018 Time: 06:55 Bed 20 Private MD: Diagnosis: Threatened Presentation: 10/18 07:02 Presenting complaint: Patient states: i came here last week because i found out i was tw2 but i was bleeding, then this morning i wiped and some small tissues came out. Transition of care: patient was not received from another setting of care. Onset of symptoms was October 18, 2018. Risk Assessment: Do you want to hurt yourself or someone else? Patient reports no desire to harm self or others. Initial Sepsis Screen: Does the patient meet any 2 criteria? No. Patient's initial sepsis screen is negative. Does the patient have a suspected source of infection? No. Patient's initial sepsis screen is negative. Care prior to arrival: None. 07:02 Method Of Arrival: Ambulatory tw2 07:02 Acuity: BRUNO 3 tw2 Triage Assessment: 07:03 General: Appears in no apparent distress. obese, Behavior is calm, cooperative, tw2 appropriate for age. Pain: Denies pain. CITY DIRECTOR: 07:09 1, 0, Living 0, LMP 08/12/2018 kb 07:16 LMP 08/25/2018 tw2 Historical: - Allergies: 07:04 No Known Allergies; tw2 - Home Meds: 07:04 None [Active]; tw2 - PMHx: 07:04 vaginal bleeding; Seizures; tw2 - PSHx: 07:04 None; tw2 - Immunization history:: Adult Immunizations. - Social history:: Smoking status: . - Ebola Screening: : Patient denies travel to an Ebola-affected area in the 21 days before illness onset. Screenin:02 Abuse screen: Denies threats or abuse. Nutritional screening: No deficits noted. tw2 Tuberculosis screening: No symptoms or risk factors identified. Fall Risk None identified. Assessment: 07:04 Reassessment: pt giving urine sample at this time. tw2 07:17 General: Appears in no apparent distress. obese, Behavior is calm, cooperative, tw2 appropriate for age. Pain: Complains of pain in pelvis. Neuro: Level of Consciousness is awake, alert, obeys commands, Oriented to person, place, time, situation. Cardiovascular: Heart tones S1 S2 Patient's skin is warm and dry. Respiratory: Airway is patent Respiratory effort is even, unlabored, Respiratory pattern is regular, symmetrical, Breath sounds are clear bilaterally. GI: No signs and/or symptoms were reported involving the gastrointestinal system. Abdomen is round non-distended. : Reports cramping, vaginal bleeding that is bright red. EENT: No signs and/or symptoms were reported regarding the EENT system. Derm: No signs and/or symptoms reported regarding the dermatologic system. Musculoskeletal: Range of motion: intact in all extremities. 08:24 Reassessment: Patient appears in no apparent distress at this time. No changes from tw2 previously documented assessment. Patient and/or family updated on plan of care and expected duration. Pain level reassessed. Patient is alert, oriented x 3, equal unlabored respirations, skin warm/dry/pink. Vital Signs: 07:16 BP 149 / 70; Pulse 88; Resp 18; Temp 97.9(TE); Pulse Ox 99% on R/A; Weight 127.01 kg tw2 (R); Height 5 ft. 1 in. (154.94 cm) (R); Pain 2/10; 08:23 BP 145 / 77; Pulse 65; Resp 17; Temp 97.8(TE); Pulse Ox 100% on R/A; tw2 07:16 Body Mass Index 52.90 (127.01 kg, 154.94 cm) tw2 ED Course: 06:55 Patient arrived in ED. ag3 06:57 Amber Mo FNP-C is [facility]. kb 06:57 Eddie Tolliver MD is Attending Physician. kb 06:57 Rustam Barajas MD is Attending Physician. kb 07:02 Angeli Jack, LÓPEZ is Primary Nurse. tw2 07:02 Arm band placed on. tw2 07:02 Bed in low position. Call light in reach. tw2 07:03 Triage completed. tw2 07:04 No provider procedures requiring assistance completed. tw2 07:08 Radiology exam delayed due to test not completed at this time. hr 07:14 Initial lab(s) drawn, by me, sent to lab. sg 07:38 US Transvaginal Ob In Process Unspecified. EDMS 07:56 Ultrasound completed. hr 08:24 Patient did not have IV access during this emergency room visit. tw2 Administered Medications: No medications were administered Outcome: 08:17 Discharge ordered by . [email or web address] 08:24 Discharged to home ambulatory. tw2 08:24 Condition: stable 08:24 Discharge instructions given to patient, Instructed on discharge instructions, follow up and referral plans. Demonstrated understanding of instructions, follow-up care. 08:24 Patient left the ED. tw2 Signatures: Dispatcher [employer] EDDE Amber Mo, FIELD SPECIALIST-C FIELD SPECIALIST-Jerel Mendoza, RN RN sg Demetrice Gutierrez Tara RN RN tw2 Sulema Gupta3
[2018-10-18 08:46] VITALS: BP 145/77; TEMP 97.8; O2SAT 100
--- NOTE | 2018-10-18 08:58 | RAD REPORT ---
EXAM DESCRIPTION: US - Transvaginal OB - 10/18/2018 7:36 am CLINICAL HISTORY: Vaginal bleeding COMPARISON: None. FINDINGS: Endometrium is thickened at 18 mm in the fundal portion of the endometrial cavity. No gest ational sac or sac remnant present. Endometrium - myometrium interface is preserved. There is no intr auterine hematoma. Small amount of free fluid is present in the cul de sac. Both ovaries are identified and normal in size. Doppler evaluation shows normal blood flow in the ova stone stroma. No adnexal mass to suspect ectopic . No dominant solid or cystic ovarian or adn exal abnormality. IMPRESSION: Thickened endometrium at 18 mm. No gestational sac or sac remnant. No hematoma or other intrauterine abnormality. No ovarian or adnexal suspicious finding. Physiologic quantity of free fluid is seen in the cul de sa c.
== END 2018-10-18 08:24 | disposition home or self-care (01) ==
LOC: ER 06:52
DX: O20.0 Threatened abortion (principal); Z3A.01 Less than 8 weeks gestation of pregnancy
CPT/HCPCS: 36415; 76817; 84702; 99283